=== PATIENT | female | born 1965 | race Caucasian/White ===

== ENCOUNTER → 2021-08-14 | Outpatient (CLI) | payer OTHER ==
[~2021-08-14] MED LIST: ATACAND16 MG PO; BRILINTA90 MG PO; CBD PO; ECOTRIN81 MG PO; GLUCOPHAGE1000 MG PO; GLUCOTROL XL10 MG PO; IBUPROFEN800 MG PO; LANTUS100 UNIT/1 SQ; LIPITOR TAB 2020 MG PO; LOPRESSOR50 MG PO; MICROZIDE12.5 MG PO; TRULICITY1.5 MG/0.5 SQ; TYLENOL COLD M1 EACH PO; VITAMIN D350000 UNIT PO; ZETIA 10 MG TAB10 MG PO
== END ==
LOC: MAMO 10:43
DX: Z12.31 Encounter for screening mammogram for malignant neoplasm of breast (principal)
CPT/HCPCS: 77063; 77067

== ENCOUNTER → 2022-05-06 | Outpatient (CLI) | payer OTHER ==
[2022-05-06 12:55] LABS: HEMOGLOBIN 12.3 gm/dl (12.3-15.3); RED BLOOD COUNT 4.44 M/UL (4.00-5.10); WHITE BLOOD COUNT 9.9 K/UL (4.5-11.0)
[2022-05-06 13:20] LABS: BUN/CREATININE RATIO 26 (0-10)
[2022-05-07 07:12] LABS: ESTIM. AVG GLU (EAG) 174 mg/dL (.); HEMOGLOBIN A1C 7.7 % (4.8-5.6)
[2022-05-07 08:14] LABS: CHOLESTEROL, TOTAL 112 mg/dL (100-199); HDL CHOLESTEROL 35 mg/dL (>39); LDL CHOLESTEROL CALC 60 mg/dL (0-99); LDL/HDL RATIO 1.7 ratio (0.0-3.2); T. CHOL/HDL RATIO 3.2 ratio (0.0-4.4); TRIGLYCERIDES 86 mg/dL (0-149)
== END ==
LOC: LAB 12:27
PROVIDERS: Internal Medicine
DX: E11.9 Type 2 diabetes mellitus without complications (principal)
CPT/HCPCS: 36415; 80048; 80061; 80076; 83036; 84443; 85025